=== PATIENT | female | born 1975 | race Caucasian/White ===

== ENCOUNTER 2019-10-01 18:39 | Emergency (ER) | payer SELFPAY ==
[2019-10-01] MEDS ORDERED: ACETAMINOPHEN 325 MG TABLET PO ONE (19:37)
--- NOTE | 2019-10-01 19:39 | ER Document Report ---
ED Medical Screen (RME) - General Chief Complaint: Abscess Stated Complaint: ABSCESS/BUTTOCK Time Seen by Provider: 10/01/19 19:33 Primary Care Provider: FARRAH ANDERSON NP [Primary Care Provider] - Follow up as needed Mode of Arrival: Ambulatory Information source: Patient Notes: HPI; 44-year-old female past medical history significant for hypertension, diabetes, MRSA presents to the emergency room complaining of an abscess to her left buttock area for the past 3 days. States it is draining foul odors drainage. Taking Aleve with some relief. PE: Alert and oriented x3. Patient appears uncomfortable.. Lungs: Clear to auscultation without rales rhonchi wheezes. Heart: Regular rate rhythm without murmurs rubs or gallops. I have greeted and performed a rapid initial assessment of this patient. A comprehensive ED assessment and evaluation of the patient, analysis of test results and completion of the medical decision making process will be conducted by additional ED providers. I have specifically instructed the patient or family members with the patient to immediately return to any nursing staff should anything change in the patient's condition or with their chief complaint. TRAVEL OUTSIDE OF THE [place] IN LAST 30 DAYS: No - Related Data Allergies/Adverse Reactions: erythromycin base [Erythromycin Base] Allergy (Verified 08/11/14 13:55) Sulfa (Sulfonamide Antibiotics) Allergy (Verified 08/11/14 13:55) Past Medical History Renal/ Medical History: Reports: Hx Ovarian Cysts Psychiatric Medical History: Reports: Hx Anxiety, Hx Depression Past Surgical History: Reports: Hx Section, Hx Cholecystectomy, Hx Gynecologic Surgery - right ovarian cyst removal, Hx Kidney (Renal Surgery), Hx Urinary Tract Surgery - 8yrs old - Immunizations Hx Diphtheria, Pertussis, Tetanus Vaccination: Yes Physical Exam - Vital signs Vitals: Temp Pulse Resp BP Pulse Ox 98.3 F 87 20 132/92 H 98 10/01/19 18:59 10/01/19 18:59 10/01/19 18:59 10/01/19 18:59 10/01/19 18:59 Course - Vital Signs Vital signs: Temp Pulse Resp BP Pulse Ox 98.3 F 87 20 132/92 H 98 10/01/19 18:59 10/01/19 18:59 10/01/19 18:59 10/01/19 18:59 10/01/19 18:59 Doctor's Discharge - Discharge Referrals: FARRAH ANDERSON SERVER [Primary Care Provider] - Follow up as needed
[2019-10-01] MEDS ORDERED: HYDROCODONE/ACETAMINOPHEN 5-325 MG (6 TAB/ER DISP) PO PRN (21:56)
[2019-10-01] MEDS ORDERED: DOXYCYCLINE HYCLATE 100 MG TABLET PO ONE (21:56)
--- NOTE | 2019-10-01 22:00 | ER Document Report ---
ED Skin Rash/Insect Bite/Abscs - General Chief Complaint: Rectal Abscess Stated Complaint: ABSCESS/BUTTOCK Time Seen by Provider: 10/01/19 19:33 Mode of Arrival: Ambulatory Notes: Patient is a 44-year-old female that comes to the emergency department for chief complaint of 2 days of a tender area in the left lower buttock area near the cleft. She states the area actually opened and started draining, she has been cleaning the area with showering regularly. She reports a foul drainage coming out. She states she felt chills yesterday and possibly today but no fevers. She denies abdominal pain, vomiting, painful bowel movements. She denies history of abscesses. She has a history of type 2 diabetes. She states that she had some leftover clindamycin from a previous prescription and she started taking 150 mg about every 8-10 hours. She denies any significant improvement. She denies any other complaints. TRAVEL OUTSIDE OF THE [place] IN LAST 30 DAYS: No - Related Data Allergies/Adverse Reactions: erythromycin base [Erythromycin Base] Allergy (Verified 08/11/14 13:55) Sulfa (Sulfonamide Antibiotics) Allergy (Verified 08/11/14 13:55) Home Medications: lisinopril, metformin, metoprolol, chol med, started old script of clindimycin since sat Past Medical History - General Information source: Patient - Social History Smoking Status: Current Every Day Smoker Family History: Reviewed & Not Pertinent Patient has homicidal ideation: No Renal/ Medical History: Reports: Hx Ovarian Cysts Psychiatric Medical History: Reports: Hx Anxiety, Hx Depression Past Surgical History: Reports: Hx Section, Hx Cholecystectomy, Hx Gynecologic Surgery - right ovarian cyst removal, Hx Kidney (Renal Surgery), Hx Urinary Tract Surgery - 8yrs old - Immunizations Hx Diphtheria, Pertussis, Tetanus Vaccination: Yes Review of Systems - Review of Systems Constitutional: No symptoms reported EENT: No symptoms reported Cardiovascular: No symptoms reported Respiratory: No symptoms reported Gastrointestinal: No symptoms reported Genitourinary: No symptoms reported Female Genitourinary: No symptoms reported Musculoskeletal: No symptoms reported Skin: See HPI Hematologic/Lymphatic: No symptoms reported Neurological/Psychological: No symptoms reported Physical Exam - Vital signs Vitals: Temp Pulse Resp BP Pulse Ox 98.3 F 87 20 132/92 H 98 10/01/19 18:59 10/01/19 18:59 10/01/19 18:59 10/01/19 18:59 10/01/19 18:59 - Notes Notes: GENERAL: Alert, interacts well. No acute distress. HEAD: Normocephalic, atraumatic. EYES: Pupils equal, round, and reactive to light. Extraocular movements intact. ENT: Oral mucosa moist, tongue midline. Oropharynx unremarkable. Airway patent. LUNGS: Clear to auscultation bilaterally, no wheezes, rales, or rhonchi. No respiratory distress. Non-tender chest wall. HEART: Regular rate and rhythm. No murmur ABDOMEN: Soft, non-tender. Non-distended. Bowel sounds present in all 4 quadrants. GENITOURINARY: Deferred RECTAL: Over the left intergluteal cleft there is a abscess which is opened and currently draining. There is mild surrounding tenderness but no severe cellulitis or streaking away from the area. Area does not extend down to include the rectum. No rectal tenderness or abnormality noted. No other concerning findings noted. Exam performed with Masha RN at bedside. EXTREMITIES: Moves all 4 extremities spontaneously. No edema, normal radial and dorsalis pedis pulses bilaterally. No cyanosis. BACK: no cervical, thoracic, lumbar midline tenderness. No saddle anesthesia, normal distal neurovascular exam. Moves all extremities in full range of motion. NEUROLOGICAL: Alert and oriented x3. Normal speech. Cranial nerves II through XII grossly intact. Strength 5/5 in all extremities. PSYCH: Normal affect, normal mood. SKIN: Warm, dry, normal turgor. No rashes or lesions noted. Course - Re-evaluation Re-evalutation: Patient does have a now open and draining abscess over the mid left gluteal cleft. This does not extend to the pilonidal area or down to the rectum. There is no perirectal or perianal abscess noted. Patient is afebrile and well- appearing. The abscess is already opened and is now draining, I did clean this and express a moderately large amount of purulent drainage out before gauze dressing was placed. Patient had been taking very low-dose clindamycin over the past few days without success. The area is now open and draining. I discussed with patient, decision was made not to open this further because it is already satisfactorily open and draining, patient will be placed on doxycycline because of her sulfur allergy, discussed care, expectations, follow-up, return precautions. Patient states understanding and agreement. - Vital Signs Vital signs: Temp Pulse Resp BP Pulse Ox 98.6 F 84 18 131/82 H 100 10/01/19 22:15 10/01/19 22:15 10/01/19 22:15 10/01/19 22:15 10/01/19 22:15 Discharge - Discharge Clinical Impression: Left buttock abscess Condition: Stable Disposition: HOME, SELF-CARE Additional Instructions: The abscess has already opened and is draining in a satisfactory fashion. Please take the antibiotics as prescribed to completion. Keep a gauze dressing over the area, change this regularly, clean the area with soap and water. Symptoms should improve and then resolved. Follow-up with primary care for additional management. Return if you worsen including severe worsening pain, development or spreading redness/hardness, spiking fever, or any other concerning or worsening symptoms. Prescriptions: Doxycycline Hyclate [Vibramycin 100 mg Tablet] 100 mg PO BID 7 Days #14 tablet Forms: Return to Work
[2019-10-01 22:11] VITALS: BP 131/82
== END 2019-10-01 22:15 | disposition home or self-care (01) ==
LOC: ER 18:39
DX: L02.31 Cutaneous abscess of buttock (principal); E11.9 Type 2 diabetes mellitus without complications; F17.200 Nicotine dependence, unspecified, uncomplicated; Z88.1 Allergy status to other antibiotic agents; Z88.2 Allergy status to sulfonamides; Z79.84 Long term (current) use of oral hypoglycemic drugs; Z79.899 Other long term (current) drug therapy
CPT/HCPCS: 99282